=== PATIENT | male | born 1975 | race Caucasian/White ===

== ENCOUNTER 2017-01-29 01:00 | Emergency (ER) | payer MEDICAID ==
[~2017-01-29] VITALS: Ht 167.6 cm; Wt 83.9 kg
[2017-01-29 01:13] VITALS: BP 134/89
--- NOTE | 2017-01-29 02:12 | NUR ---
TO ER BED 4
--- NOTE | 2017-01-29 02:20 | NUR ---
PT IS 41/M BIB TO ED WITH C/O ANXIETY, DIFFICULTY SLEEPING. PT STATES NO MEDICAL HX.. DENIES N/V/D; SKIN IS PINK/WARM/DRY; AAOX4 WITH EVEN AND STEADY GAIT; LUNGS CLEAR BL; HR EVEN AND REGULAR; PT DENIES ANY FEVER, CP, SOB, OR COUGH AT THIS TIME; PATIENT STATES PAIN OF 8/10 AT THIS TIME; VSS; PATIENT POSITIONED FOR COMFORT; HOB ELEVATED; BEDRAILS UP X2; BED DOWN. ER MD MADE AWARE OF PT STATUS.
--- NOTE | 2017-01-29 02:48 | NUR ---
DR CALVILLO AT BEDSIDE EVALUATING PATIENT.
[2017-01-29] MEDS ORDERED: LORazepam 2 MG/ML VIAL IM ONE (03:00)
[2017-01-29 04:05] VITALS: BP 128/81
--- NOTE | 2017-01-29 04:05 | NUR ---
Patient discharged with v/s stable. Written and verbal after care instructions given and explained. Patient alert, oriented and verbalized understanding of instructions. Ambulatory with steady gait. All questions addressed prior to discharge. ID band removed. Patient advised to follow up with PMD. Rx of BENEDRYL 25 MG given. Patient educated on indication of medication including possible reaction and side effects. Opportunity to ask questions provided and answered.
== END 2017-01-29 02:05 | disposition home or self-care (01) ==
LOC: MED 01:00
DX: G47.00 Insomnia, unspecified (principal); F41.9 Anxiety disorder, unspecified; R03.0 Elevated blood-pressure reading, without diagnosis of hypertension
CPT/HCPCS: 96372; 99283; J2060

== ENCOUNTER 2019-04-11 20:17 | Emergency (ER) | payer MEDICAID ==
[~2019-04-11] VITALS: Ht 167.6 cm; Wt 90.7 kg
[2019-04-11 21:02] VITALS: BP 146/90
--- NOTE | 2019-04-11 21:07 | NUR ---
PT AMBULATED TO LOBBY. ACCOMPANIED BY FAMILY.
--- NOTE | 2019-04-11 21:23 | NUR ---
PT AMBULATED TO BED 11.
--- NOTE | 2019-04-11 21:33 | NUR ---
PT TO ED REFERRED BY DENTIST FOR 1 HYPERTENSIVE EPISODE TODAY. CURRENT BP IS 143/93. PT DENIES HEADAHCE, BLURRED VISION. ONLY REPORTING MILD DIZZINESS AT THIS TIME. PT PLACED INTO BED, PENDING MD WILDER.
[2019-04-11] MEDS ORDERED: LISINOPRIL 5 MG TAB PO ONE (22:05)
[2019-04-11 22:29] LABS: BASOPHILS % (AUTO) 0.4 % (0.0-2.0); EOSINOPHILS # (AUTO) 0.3 K/uL (0-0.4); EOSINOPHILS % (AUTO) 3.3 % (0.0-4.0); HEMOGLOBIN 14.9 g/dL (12.0-18.0); LYMPHOCYTES # (AUTO) 2.2 K/uL (2.0-11.5); LYMPHOCYTES % (AUTO) 25.6 % (20.5-51.1); MEAN CORPUSCULAR HEMOGLOBIN 31 pg (27-31); MEAN CORPUSCULAR HGB CONC 35 g/dL (33-37); MEAN CORPUSCULAR VOLUME 87.9 fL (80-94); MONOCYTES # (AUTO) 0.7 K/uL (0.8-1.0); MONOCYTES % (AUTO) 8.5 % (1.7-9.3); NEUTROPHILS # (AUTO) 5.4 K/uL (1.8-7.7); NEUTROPHILS % (AUTO) 62.2 % (42.2-75.2); PLATELET COUNT (AUTO) 202 K/uL (140-450); RED BLOOD CELL COUNT(AUTO) 4.89 MIL/uL (4.20-6.10); RED CELL DISTRIBUTION WIDTH 13.8 % (11.6-13.7); WHITE BLOOD COUNT (AUTO) 8.7 K/uL (4.8-10.8)
[2019-04-11 22:38] LABS: ANION GAP 10.3 (8-16); CARBON DIOXIDE 27.3 mmol/L (21-32); POTASSIUM 3.6 mmol/L (3.5-5.1)
[2019-04-11 22:45] LABS: ALBUMIN 3.5 g/dL (3.4-5.0); TOTAL BILIRUBIN 0.4 mg/dL (0.0-1.0)
[2019-04-11 23:26] VITALS: BP 137/83
--- NOTE | 2019-04-11 23:28 | NUR ---
Patient discharged with v/s stable. Written and verbal after care instructions given and explained. Patient alert, oriented and verbalized understanding of instructions. Ambulatory with steady gait. All questions addressed prior to discharge. ID band removed. Patient advised to follow up with PMD. Rx of LISINOPRIL given. Patient educated on indication of medication including possible reaction and side effects. Opportunity to ask questions provided and answered.
== END 2019-04-11 23:26 | disposition home or self-care (01) ==
LOC: MED 20:17
DX: I10 Essential (primary) hypertension (principal); R51 Headache
CPT/HCPCS: 36415; 80053; 85025; 99283

== ENCOUNTER 2022-01-18 17:00 | Emergency (ER) | payer MEDICAID ==
[~2022-01-18] VITALS: Ht 167.6 cm; Wt 90.7 kg
[2022-01-18 17:08] VITALS: BP 189/119
--- NOTE | 2022-01-18 17:10 | NUR ---
AMBULATED TO BED 12
--- NOTE | 2022-01-18 17:22 | NUR ---
GEMINI AT BEDSIDE
--- NOTE | 2022-01-18 17:25 | NUR ---
46/M BIB SELF C/O OF CONGESTION TO THE NOSE FOR THE PAST WEEK WITH NO RELIEF. INTERMITTENT CONGESTION, WATERY EYES AND SNEEZING. DRAINAGE FROM THE NOSE IS WHITE. PMHX DENIES MEDICATION DENIES KNA
[2022-01-18] MEDS ORDERED: LORA10TA19 PO (17:31)
[2022-01-18] MEDS ORDERED: FLONAS NS (17:31)
--- NOTE | 2022-01-18 17:40 | NUR ---
GEMINI AT BEDSIDE ASSESSING PATIENTS
[2022-01-18 17:41] VITALS: BP 154/102
--- NOTE | 2022-01-18 17:41 | NUR ---
BP REASSESSED, DECREASED TO 154/102, WILL BE FOLLOWING UP WITH PCP
--- NOTE | 2022-01-18 17:42 | NUR ---
Patient discharged with v/s stable. Written and verbal after care instructions given on allergic reactions and explained. Patient alert, oriented and verbalized understanding of instructions. Ambulatory with steady gait. All questions addressed prior to discharge. ID band removed. Patient advised to follow up with PMD. Rx of Fluticasone Propionate and Loratadine given. Opportunity to ask questions provided and answered.
== END 2022-01-18 17:42 | disposition home or self-care (01) ==
LOC: MED 17:00
DX: J30.9 Allergic rhinitis, unspecified (principal); R06.7 Sneezing; I10 Essential (primary) hypertension; Z79.899 Other long term (current) drug therapy
CPT/HCPCS: 99283

== ENCOUNTER 2023-05-05 22:59 | Emergency (ER) | payer MEDICAID ==
[~2023-05-05] VITALS: Ht 167.6 cm; Wt 95.3 kg
[~2023-05-05 22:59] MED LIST: FLONAS NS; LORA10TA19 PO
[2023-05-05 23:00] VITALS: BP 140/90
--- NOTE | 2023-05-05 23:00 | NUR ---
LACERATION TO HEAD,S/P A CAN OF PAINT FELL INTO HIS HEAD AN HOUR AGO, NO LOC, NO VOMITING, UTD WITH TETANUS VACCINE, NO BLEEDING AT THIS TIME
--- NOTE | 2023-05-05 23:03 | NUR ---
TO LOBBY A/W BED AMBULATORY
--- NOTE | 2023-05-06 01:15 | NUR ---
pt ambulated to bed 12
[2023-05-06] MEDS ORDERED: BACITRACIN OINT 500 UNITS/GM PKT TP ONE (01:55)
[2023-05-06] MEDS ORDERED: BACTO TP (01:59)
[2023-05-06 02:05] VITALS: BP 140/90
--- NOTE | 2023-05-06 02:28 | NUR ---
Patient discharged with v/s stable. Written and verbal after care instructions given and explained. Patient alert, oriented and verbalized understanding of instructions. Ambulatory with steady gait. All questions addressed prior to discharge. ID band removed. Patient advised to follow up with PMD. Rx of MUPIROCIN given. Patient educated on indication of medication including possible reaction and side effects. Opportunity to ask questions provided and answered.
== END 2023-05-06 02:28 | disposition home or self-care (01) ==
LOC: MED 22:59
DX: S01.01XA Laceration without foreign body of scalp, initial encounter (principal); I10 Essential (primary) hypertension; Z79.899 Other long term (current) drug therapy; W20.8XXA Other cause of strike by thrown, projected or falling object, initial encounter; Y93.89 Activity, other specified; Y92.89 Other specified places as the place of occurrence of the external cause; Y99.8 Other external cause status
CPT/HCPCS: 99283

== ENCOUNTER 2024-02-23 17:31 | Emergency (ER) | payer MEDICAID, OTHER ==
[~2024-02-23] VITALS: Ht 172.7 cm; Wt 95.3 kg
[~2024-02-23 17:31] MED LIST changes: +BACTO TP
[2024-02-23 17:33] VITALS: BP 169/109; PULSE 109; RESP 18; TEMP 98; O2SAT 96
[2024-02-23] MEDS ORDERED: HYDROcodone/APAP 5/325 MG 1 TAB TAB ONE (18:37)
[2024-02-23] MEDS: IBUPROFEN 600 MG TAB PO ONE (18:38)
[2024-02-23] MEDS: HYDROcodone/APAP 5/325 MG 1 TAB TAB PO ONE (18:40)
[2024-02-23] MEDS ORDERED: BACI-418 TP (19:04)
[2024-02-23] MEDS ORDERED: CEPH-588 PO (19:04)
[2024-02-23] MEDS ORDERED: IBUP-2213 PO (19:04)
[2024-02-23 19:30] VITALS: BP 149/89; PULSE 109; RESP 18; TEMP 98; O2SAT 96
== END 2024-02-23 19:31 | disposition home or self-care (01) ==
LOC: MED 17:31
DX: S61.212A Laceration without foreign body of right middle finger without damage to nail, initial encounter (principal); Z79.899 Other long term (current) drug therapy; W22.8XXA Striking against or struck by other objects, initial encounter; Y93.89 Activity, other specified; Y92.89 Other specified places as the place of occurrence of the external cause; Y99.8 Other external cause status
CPT/HCPCS: 12001; 73140; 99283